=== PATIENT | female | born 1995 | race Caucasian/White ===

== ENCOUNTER → 2021-08-13 11:42 | Outpatient (CLI) | payer OTHER, SELFPAY ==
[2021-08-17 12:08] LABS: Alternaria alternata <0.10 kU/L (Class 0); Aspergillus fumigatus <0.10 kU/L (Class 0); Bahia Grass <0.10 kU/L (Class 0); Beef <0.10 kU/L (Class 0); Bermuda Grass <0.10 kU/L (Class 0); Bluegrass, Kentucky <0.10 kU/L (Class 0); Cat Hair/Dander, Standard 2.25 kU/L (Class III); Cedar, Mountain <0.10 kU/L (Class 0); Cladosporium herbarum <0.10 kU/L (Class 0); Cockroach, American <0.10 kU/L (Class 0); Corn <0.10 kU/L (Class 0); D farinae Mite <0.10 kU/L (Class 0); D pteronyssinus <0.10 kU/L (Class 0); Dog Epithelia <0.10 kU/L (Class 0); Egg, Whole <0.10 kU/L (Class 0); Elm, American White <0.10 kU/L (Class 0); Hazelnut Tree <0.10 kU/L (Class 0); Hickory, White <0.10 kU/L (Class 0); Johnson Grass <0.10 kU/L (Class 0); Maple/Box Elder <0.10 kU/L (Class 0); Milk (Cow) <0.10 kU/L (Class 0); Mucor racemosus <0.10 kU/L (Class 0); Mugwort <0.10 kU/L (Class 0); Mulberry, White <0.10 kU/L (Class 0); Nettle <0.10 kU/L (Class 0); Oak, White <0.10 kU/L (Class 0); Peanut <0.10 kU/L (Class 0); Penicillium chrysogen <0.10 kU/L (Class 0); Pigweed, Rough <0.10 kU/L (Class 0); Plantain, English <0.10 kU/L (Class 0); Pork <0.10 kU/L (Class 0); Ragweed, Short/Common <0.10 kU/L (Class 0); Sheep Sorrel(Dock) <0.10 kU/L (Class 0); Soybean <0.10 kU/L (Class 0); Stemphylium herbarum <0.10 kU/L (Class 0); Sweet Gum <0.10 kU/L (Class 0); Sycamore, American <0.10 kU/L (Class 0); Wheat <0.10 kU/L (Class 0)
[2021-08-17 14:06] LABS: Chocolate <0.10 kU/L (Class 0)
== END ==
PROVIDERS: Visit Provider Family Medicine
DX: T78.40XA Allergy, unspecified, initial encounter (principal)
CPT/HCPCS: 36415; 86003; 86005

== ENCOUNTER 2022-01-29 00:23 | Emergency (ER) | payer OTHER, SELFPAY ==
[2022-01-29 00:24] VITALS: BP 124/73; PULSE 75; RESP 16; TEMP 37.1; O2SAT 99; BMI 27.1
[2022-01-29 00:26] VITALS: BP 124/73; PULSE 75; RESP 16; TEMP 37.1; O2SAT 99
[2022-01-29 00:41] LABS: Mucous, Urine 0 SEEN /hpf (<or=2+)
--- NOTE | 2022-01-29 00:44 | EDS_ITS ---
HPI HPI - Female History of Present Illness Chief Complaint: Complaint Informant: patient Narrative Narrative: Patient is a 26-year-old female with remote history of UTIs presenting with concern for urinary tract infection. She states around 6 PM today she developed urgency, dysuria, frequency and hematuria. Denies any vaginal discharge or concern for STIs. States she has some chills and feels clammy. Last urinary tract infection was about a year and a half ago. Did not take any medications prior to arrival. No other complaints at this time. Denies any fever, chills, nausea, vomiting or back pain. Is not concerned for . [facility] Medical History Anxiety Exercise-induced asthma Inguinal hernia Mitral valve prolapse Home Medications Kristina 10 mg PO/SL DAILY 01/29/22 [History Last Taken Unknown] Prozac 40 mg PO/SL DAILY 01/29/22 [History Last Taken Unknown] Sprintec (28) 1 tab PO/SL DAILY 01/29/22 [History Last Taken Unknown] cephalexin 500 mg PO Q12 #10 cap 01/29/22 [Rx Last Taken Unknown] phenazopyridine [Pyridium] 200 mg PO BID PRN PRN #6 tab 01/29/22 [Rx Last Taken Unknown] Allergy/AdvReac Type Severity Reaction Status Date / Time nut - unspecified Allergy Hives Verified 01/29/22 00:26 Surgical History H/O adenoidectomy Social History Smoking Status: Never smoker ROS ROS ED Constitutional Constitutional ED: Reports chills and sweats; Denies fever(s) ENT ENT ED: Denies rhinorrhea Cardiovascular Cardiovascular: Denies chest pain Respiratory/Chest Respiratory/Chest: Denies dyspnea Gastrointestinal Gastrointestinal: Denies abdominal pain, diarrhea, nausea or vomiting Genitourinary Genitourinary ED: Reports dysuria, hematuria and urinary frequency Musculoskeletal Musculoskeletal: Denies arthralgias or myalgias Integumentary Denies rash Neurologic Neurologic: Denies headache(s) or weakness Psychiatric Psychiatric: Denies depression EXAM Physical Exam Const Vital Signs: 01/29/22 00:24 01/29/22 00:26 Temperature 98.7 F 98.7 F Temperature Source Temporal Temporal Pulse Rate 75 75 Respiratory Rate 16 16 Blood Pressure 124/73 H 124/73 H Blood Pressure Mean 90 90 Pulse Ox 99 99 Oxygen Delivery Method Room Air Room Air Positive well nourished and well developed General Appearance ED: well developed and NAD HEENT Reports moist mucous membranes Eyes PERRL and EOMs intact bilaterally Neck supple Chest Wall inspection of chest normal Resp normal respiratory effort and clear to auscultation bilaterally Cardio regular rate and regular rhythm GI normal to inspection, nondistended, normoactive bowel sounds and soft to palpation GI Narrative: Very mild suprapubic tenderness no CVA tenderness Extremity normal to inspection Neuro oriented x3 Neuro Narrative: No focal deficits appreciated Sensorium / Orientation: alert Psych mental status grossly normal Skin no rashes or lesions noted and no wounds MDM MDM MDM Narrative Medical decision making narrative: Patient evaluated for 1 day of urinary symptoms. She is hemodynamically stable. No CVA tenderness. Does not have any vaginal complaints. Lower suspicion for renal pathology, tubo-ovarian abscess or more severe diagnosis. Urinalysis is obtained as well as urine . This is consistent with UTI. Culture sent. Given first dose of Keflex and Perdiem in the ER. Lab Data Labs: Laboratory Results - last 24 hr 01/29/22 00:36 Urine Color Yellow Urine Clarity Cloudy Urine pH 6.5 Ur Specific [place] 1.010 Urine Protein 100 H Urine Glucose (UA) Normal Urine Ketones Negative Urine Occult Blood 250 H Urine Nitrite Positive H Urine Bilirubin Negative Urine Urobilinogen Normal Ur Leukocyte Esterase 500 H Urine RBC > 100 SEEN Urine WBC >100 SEEN Ur Squamous Epith Cells 0-5 SEEN Urine Bacteria 4+ Urine Mucus 0 SEEN Urine Test Negative Discharge Plan Triage Chief Complaint: Complaint ED Provider: Natalie Cordova Dx/Rx/DC Orders Clinical Impression: UTI (urinary tract infection), Hematuria Instructions: ED CYSTITIS Female Adult Prescriptions: New cephalexin 500 mg capsule 500 mg PO Q12 Qty: 10 RF: 0 phenazopyridine [Pyridium] 200 mg tablet 200 mg PO BID PRN PRN (Reason: pain) Qty: 6 RF: 0 No Action Kristina 10 mg PO/SL DAILY RF: 0 Prozac 40 mg PO/SL DAILY RF: 0 Sprintec (28) 1 tab PO/SL DAILY RF: 0 Referrals: Rosalio Torres MD [STAFF PHYSICIAN] - As Needed Disposition Disposition: Home, Self Care
[2022-01-29 00:47] LABS: Color, Urine Yellow (Yellow); Glucose, Dipstick Normal (Normal); Internal QC Validated? YES +Cl - CLEAR BKGD; Ketone-Dipstick Negative (Negative); Leukocyte Esterase-Dipstick 500 /ul (Negative); Nitrite-Dipstick Positive (Negative); Occult Blood-Urine 250 /ul (Negative); Pregnancy, Urine Negative Negative; Protein-Dipstick 100 mg/dl (Negative); Urine Bilirubin Dipstick Negative (Negative); Urine Clarity Cloudy (Clear); Urine Urobilinogen Normal (Normal); Urine pH 6.5 (5.0 - 8.0)
[2022-01-29 00:55] LABS: Bacteria 4+ /hpf (None Seen); Red Blood Cells-Urine > 100 SEEN /hpf (0-5); Squamous Epithelial Cells - UA 0-5 SEEN /hpf (5-10); White Blood Cells >100 SEEN /hpf (0-5)
[2022-01-29] MEDS: Cephalexin 250 MG Capsule 500 MG PO (01:01)
[2022-01-29] MEDS: Phenazopyridine 95 MG Tablet 190 MG PO (01:01)
[2022-01-29 01:05] VITALS: BP 117/64; PULSE 72; RESP 16; O2SAT 98
== END 2022-01-29 01:05 | disposition home or self-care (01) ==
PROVIDERS: Emergency Provider Emergency Medicine; Visit Provider Emergency Medicine
DX: N39.0 Urinary tract infection, site not specified (principal); F41.9 Anxiety disorder, unspecified; Z79.899 Other long term (current) drug therapy; J45.990 Exercise induced bronchospasm
CPT/HCPCS: 81001; 81025; 87086; 87088; 87186; 99283